=== PATIENT | female | born 1990 ===

== ENCOUNTER 2020-04-24 06:24 | Inpatient (IN) | payer BC, MEDICAID, OTHER ==
[~2020-04-24] VITALS: Ht 170.2 cm; Wt 97.7 kg
[2020-04-24 06:40] VITALS: BP 117/68
[2020-04-24 07:12] LABS: AMPHETAMINE SCREEN, URINE Negative (Negative); BARBITURATE SCREEN, URINE Negative (Negative); BENZODIAZEPINE SCREEN, URINE Negative (Negative); CANNABINOID SCREEN, URINE Negative (Negative); COCAINE SCREEN, URINE Negative (Negative); METHADONE SCREEN, URINE Negative (Negative); OPIATE SCREEN, URINE Negative (Negative)
[2020-04-24] MEDS ORDERED: LIDOCAINE 1%, 20ML ONE (07:12)
[2020-04-24] MEDS ORDERED: BETAMETHASONE 6 MG/ML, 5ML IM ONE ×2 (07:12→07:30)
[2020-04-24] MEDS ORDERED: MISOPROSTOL 200 MCG TABLET ONE (07:12)
[2020-04-24] MEDS ORDERED: OXYTOCIN 30U/ 0.9% NaCL 500ML 500 ML ONE (07:13)
[2020-04-24 07:15] LABS: MICROSCOPIC NOT IND
[2020-04-24] MEDS ORDERED: NEWBORN KIT ONE (07:15)
[2020-04-24] MEDS ORDERED: TERBUTALINE 1 MG/ML, 1ML SQ PRN (07:30)
[2020-04-24] MEDS ORDERED: LACTATED RINGERS 1,000 ML IV SCH (07:30)
[2020-04-24] MEDS ORDERED: OXYTOCIN 30U/ 0.9% NaCL 500ML 500 ML IV ONE (07:30)
[2020-04-24] MEDS ORDERED: ONDANSETRON 2MG/ML, 2ML IVPush PRN (07:30)
[2020-04-24] MEDS ORDERED: FENTANYL PF 100 MCG/2ML IVPush PRN (07:30)
[2020-04-24] MEDS ORDERED: PENICILLIN GK 5,000,000 UNITS in DEXTROSE 5% 100 ML IVPB ONE (07:30)
[2020-04-24] MEDS ORDERED: METOCLOPRAMIDE 5 MG/ML, 2ML IVPush PRN (07:30)
[2020-04-24] MEDS ORDERED: CALCIUM CARBONATE 500 MG TAB.CHEW PO PRN (07:30)
[2020-04-24] MEDS ORDERED: TERBUTALINE 1 MG/ML, 1ML IVPush PRN (07:30)
[2020-04-24] MEDS ORDERED: D5%-LACTATED RINGERS 1,000 ML IV SCH (07:30)
[2020-04-24] MEDS ORDERED: FENTANYL PF 100 MCG/2ML IV PRN (07:30)
[2020-04-24] MEDS ORDERED: FENTANYL PF 100 MCG/2ML ONE (07:38)
[2020-04-24 07:45] LABS: BASOPHILS % (AUTO) 1 % (0-1); EOSINOPHILS % (AUTO) 1 % (1-7); LYMPHOCYTES % (AUTO) 18 % (22-44); MEAN CORPUSCULAR HEMOGLOBIN 30.7 pg (27.0-34.8); MEAN CORPUSCULAR HGB CONC 34.5 g/dL (32.4-35.8); MEAN PLATELET VOLUME 8.8 fL (7.4-10.4); MONOCYTES % (AUTO) 7 % (2-9); NEUTROPHILS % (AUTO) 74 % (42-75); PLATELET COUNT 162 x10^3/uL (130-400); RED BLOOD COUNT 4.17 x10^6/uL (3.82-5.3); RED CELL DISTRIBUTION WIDTH 12.8 % (9.6-15.2)
[2020-04-24 07:47] LABS: MD NO
[2020-04-24] MEDS ORDERED: PREN1TAB62 PO (08:00)
[2020-04-24] MEDS ORDERED: CITA10TA4 PO (08:00)
[2020-04-24] MEDS ORDERED: DIPH50CA62 PO (08:01)
[2020-04-24] MEDS ORDERED: [UNRECOGNIZED DRUG - CODE] PO (08:02)
[2020-04-24] MEDS ORDERED: MISOPROSTOL 200 MCG TABLET PR ONE (10:00)
[2020-04-24] MEDS ORDERED: IBUPROFEN 600 MG TABLET ONE (10:06)
[2020-04-24] MEDS: IBUPROFEN 600 MG TABLET PO PRN ×2 (10:24→16:22)
[2020-04-24] MEDS ORDERED: ACETAMINOPHEN 325 MG TABLET PO PRN (10:30)
[2020-04-24] MEDS ORDERED: CARBOPROST TROMETHAMINE 250 MCG/ML, 1ML IM PRN (10:30)
[2020-04-24] MEDS ORDERED: DOCUSATE 100 MG CAPSULE PO PRN (10:30)
[2020-04-24] MEDS ORDERED: MISOPROSTOL 200 MCG TABLET PR PRN (10:30)
[2020-04-24] MEDS ORDERED: OXYTOCIN 10 UNITS/ML, 1ML IM PRN (10:30)
[2020-04-24] MEDS ORDERED: METHYLERGONOVINE 0.2 MG/ML IM PRN (10:30)
[2020-04-24] MEDS ORDERED: SIMETHICONE 80 MG CHEW TAB PO PRN (10:30)
[2020-04-24] MEDS: OXYTOCIN 30U/ 0.9% NaCL 500ML 500 ML IV SCH ×2 (10:30→20:30)
[2020-04-24] MEDS ORDERED: HYDROcodone/APAP 5/325 TABLET PO PRN ×2 (10:30)
[2020-04-24 13:05] VITALS: BP 99/62
[2020-04-24 15:50] VITALS: BP 133/87
[2020-04-24 18:59] LABS: MEAN CORPUSCULAR HEMOGLOBIN 30.6 pg (27.0-34.8); MEAN CORPUSCULAR HGB CONC 34.2 g/dL (32.4-35.8); MEAN PLATELET VOLUME 9.2 fL (7.4-10.4); PLATELET COUNT 189 x10^3/uL (130-400); RED BLOOD COUNT 4.14 x10^6/uL (3.82-5.3); RED CELL DISTRIBUTION WIDTH 12.8 % (9.6-15.2)
[2020-04-24 19:21] LABS: MD YES
[2020-04-24 19:23] LABS: BAND#(MANUAL) 1.67 x10^3/uL; BANDS%(MANUAL) 14 % (0-7); LYMPH#(MANUAL) 0.83 x10^3/uL (1-3.4); LYMPHS% (MANUAL) 7 % (22-44); MONOS#(MANUAL) 0.12 x10^3/uL (0.3-2.7); MONOS% (MANUAL) 1 % (2-9); SEG#(MANUAL) 9.28 x10^3/uL (1.8-6.8); SEGS% (MANUAL) 78 % (42-75)
[2020-04-24 19:24] LABS: <PLATELET ESTIMATE> ADEQUATE; <PLT MORPHOLOGY> NORMAL PLT MORPH; <RBC MORPHOLOGY> NORMAL
[2020-04-24 19:53] VITALS: BP 118/74
[2020-04-25] VITALS: BP 89/50
[2020-04-25 04:00] VITALS: BP 98/55
[2020-04-25] MEDS: OXYTOCIN 30U/ 0.9% NaCL 500ML 500 ML IV SCH (06:30)
[2020-04-25] MEDS: IBUPROFEN 600 MG TABLET PO PRN (07:25)
[2020-04-25 07:35] VITALS: BP 108/70
[2020-04-25] MEDS ORDERED: PRENATAL VIT/IRON/FA 1 EACH TABLET PO SCH (09:00)
[2020-04-25] MEDS ORDERED: IBUP-1222 PO (10:12)
[2020-04-25] MEDS ORDERED: SENN-92 PO (10:13)
== END 2020-04-25 12:25 | disposition home or self-care (01) | DRG 806 ==
LOC: LDOP 06:24 → LDIP 07:16 → 2NW 12:00
PROVIDERS: ADMIT Obstetrics & Gynecology; ATTEND Obstetrics & Gynecology
PROC: 10E0XZZ Delivery of Products of Conception, External Approach (ICD-10-PCS; principal; 2020-04-24)
PROC: 3E033VJ Introduction of Other Hormone into Peripheral Vein, Percutaneous Approach (ICD-10-PCS; 2020-04-24)
DX: O60.14X0 Preterm labor third trimester with preterm delivery third trimester, not applicable or unspecified (principal); O99.324 Drug use complicating childbirth; Z37.0 Single live birth; Z20.822 Contact with and (suspected) exposure to COVID-19; O99.824 Streptococcus B carrier state complicating childbirth; F32.9 Major depressive disorder, single episode, unspecified; G43.909 Migraine, unspecified, not intractable, without status migrainosus; F12.929 Cannabis use, unspecified with intoxication, unspecified; Z3A.34 34 weeks gestation of pregnancy
CPT/HCPCS: 76815; 80307; 81003; 84112; 85025; 86592; 86850; 86900; 87086; 87635; 88300; G0378; J0702; J2540; J3010; J2590; J7120